=== PATIENT | female | born 1990 | race Caucasian/White ===

== ENCOUNTER 2017-03-11 05:15 | Day surgery (SDC) | payer MEDICAID ==
[2017-03-08 14:25] LABS: BASOPHILS 0.2 % (0-2); EOSINOPHILS 0.6 % (0-7); HEMATOCRIT 44.1 % (36.0-48.0); HEMOGLOBIN 15.3 g/dL (12-16); IMMATURE GRANULOCYTES 0.2 % (0-5); LYMPHOCYTES 19.9 % (15-50); MCH 31.2 pg (26.0-34.0); MCHC 34.7 g/dL (31.0-37.0); MEAN PLATELET VOLUME 9.5 fL (7.4-10.4); MONOCYTES 6.1 % (2-11); RDW 12.1 % (11.5-14.5); WBC 12.7 10x3/uL (4.8-10.8)
[2017-03-08 14:29] LABS: PLATELET COUNT 258 10x3/uL (130-400)
[~2017-03-11] VITALS: Ht 177.8 cm; Wt 93.9 kg
--- NOTE | ~2017-03-11 | OP ---
PATIENT NAME: ROMMEL MANN MEDICAL RECORD: [id number] :89 LOCATION:D.OPS ADMISSION DATE: SURGEON: EMILY BRADY MD DATE OF OPERATION: 03/11/2017 PREOPERATIVE DIAGNOSES: 1. Pelvic pain. 2. Active endometriosis. POSTOPERATIVE DIAGNOSES: 1. Pelvic pain. 2. Active endometriosis. PROCEDURES: 1. Diagnostic laparoscopy. 2. Fulguration of endometriosis. SURGEON: Emily Brady MD BROKERAGE CLERK: Mr. Guerrero. ANESTHESIOLOGIST: Dr. Kang. ANESTHESIA: General with endotracheal intubation. FINDINGS: Uterus, tubes, and ovaries are unremarkable. There is active endometriosis and classic powder burn lesion in the anterior pouch in the midline. There are 2 lesions measuring less than 0.5 cm across. Along the cul-de-sac and above the right and left uterosacral ligaments, there were multiple small lesions. On the right side, multiple blisters were identified. On the left, several small powder burn lesions overlying the tract of the ureter. What was visualized of the abdominal anatomy is unremarkable. PATHOLOGY: None. SPECIMEN DISPOSITION: None applicable. ESTIMATED BLOOD LOSS: Minimal. FLUIDS: 500 mL of lactated Ringer's. URINE OUTPUT: Quantity sufficient void prior to the procedure. COMPLICATIONS: None. DRAIN: None. INDICATIONS: The patient is a 27-year-old female with longstanding pelvic pain. The patient has been tried on conservative management without results. She is consented for diagnostic laparoscopy and any indicated procedure. DESCRIPTION OF PROCEDURE: After informed consent was given, the patient was taken to the operating room where anesthetic was obtained and she is positioned. The patient is now prepped and draped. An incision made at the umbilicus. A 5-mm trocar was inserted. Pneumoperitoneum was developed. Accessory ports OPERATIVE REPORT [id number] ROMMEL MANN placed. Bowel swept free of the pelvis and the pelvis visualized with the above findings. Bovie cautery was now selected at 20 vivar of energy and active endometrial lesions anterior to the uterus were ablated. After completion of fulguration of the endometriosis, the accessory trocars were removed with the pneumoperitoneum being released during this time. The lower skin incision was closed and then the primary trocar removed and the skin closed. All sites were covered with Dermabond. Sponge, lap, and needle counts correct times 2. TRANSINT:[id number] Voice Confirmation ID: [id number] DOCUMENT ID: [id number] EMILY BRADY MD at 0809 CC: [id number] DICTATION DATE: 03/11/17 0759 MAILER: 03/11/17 1058 [facility] 03/11/17 [place] [id number] [place] [id number]
[~2017-03-11 05:15] MED LIST: ALDACTONE50 MG PO; HYDROCODON-ACE1 EAC7 PO; LOW-OGESTREL1 TAB PO; OMEPRAZOLE20 M1 PO
[2017-03-11 06:48] LABS: HCG URINE NEGATIVE (NEGATIVE)
[2017-03-11 06:49] VITALS: BP 116/77; Ht 177.8 cm; Wt 93.9 kg
== END 2017-03-11 11:10 | disposition home or self-care (01) ==
LOC: D.OPS 05:15
PROVIDERS: Obstetrics & Gynecology
DX: N80.3 Endometriosis of pelvic peritoneum (principal); Z01.812 Encounter for preprocedural laboratory examination

== ENCOUNTER 2018-06-09 05:20 | Day surgery (SDC) | payer MEDICAID ==
[2018-06-06 11:01] LABS: BASOPHILS 0.4 % (0-2); EOSINOPHILS 1.1 % (0-7); HEMATOCRIT 41.3 % (36.0-48.0); HEMOGLOBIN 14.6 g/dL (12-16); IMMATURE GRANULOCYTES 0.1 % (0-5); LYMPHOCYTES 36.8 % (15-50); MCHC 35.4 g/dL (31.0-37.0); MCV 87.7 fL (80.0-100.0); MEAN PLATELET VOLUME 9.6 fL (7.4-10.4); MONOCYTES 4.8 % (2-11); NEUTROPHILS 56.8 % (40-80); PLATELET COUNT 260 10x3/uL (130-400); RBC 4.71 10x6/uL (4.00-5.40); WBC 7.4 10x3/uL (4.8-10.8)
[2018-06-06 11:09] LABS: CALC OSMOLALITY 275 mosm/kg (275-300); CALCIUM 8.8 mg/dL (8.5-10.1); CARBON DIOXIDE 26.9 mmol/L (21.0-32.0); CHLORIDE - SERUM 103 mmol/L (98-107); CREATININE - SERUM 0.9 mg/dL (0.6-1.3); GLUCOSE 115 mg/dL (74-106); POTASSIUM - SERUM 3.8 mmol/L (3.5-5.1); SODIUM 138 mmol/L (136-145); UREA NITROGEN 11 mg/dL (7-18); eGFR NON AFRICAN AMERICAN 78 mL/min (90-120)
[~2018-06-09] VITALS: Ht 177.8 cm; Wt 90.9 kg
[2018-06-09] VITALS (9 sets, daily range): BP systolic 96–133; BP diastolic 55–81; Ht 177.8 cm; Wt 90.9 kg
[~2018-06-09 05:20] MED LIST changes: +PROTONIX40 MG PO
[2018-06-09 06:35] LABS: HCG URINE NEGATIVE (NEGATIVE)
--- NOTE | 2018-06-09 10:32 | NUR ---
RECEIVED PT FROM VIA STRETCHER TO ROOM 1278. PT TRANSFERS ONTO BED PER SELF. VSS. HRRR WITHOUT AUDIBLE MURMUR. BBS CLEAR. BS HYPOACTIVE. ABDOMEN SOFT/NON-DISTENDED. 3 LAP INCISIONS WITH GLUE. NO REDNESS, SWELLING OR DRAINAGE NOTED. ICE PACK TO ABDOMEN. NEG HOMANS' SIGN. PPP. NO EDEMA NOTED TO BLE. SCDS ON BLE. PUMP ON. PIV OF LR INFUSING AT 125 ML/HR. SITE CLEAR TO LEFT WRIST. PT INSTRUCTED TO NOTIFY NURSE OF NEED TO VOID. VERBALIZES UNDERSTANDING. SR UP X 2. CALL LIGHT IN REACH.
--- NOTE | 2018-06-09 10:47 | NUR ---
PT GIVEN TYLENOL 1000 MG, NEURONTIN 300 MG PO, TORADOL 30 MG IVP. PT INSTRUCTED ON ALL MEDS. VERBALIZES UNDERSTANDING. DENIES NAUSEA AT THIS TIME.
--- NOTE | 2018-06-09 11:10 | NUR ---
STATES PAIN IS A 5 ON SCALE OF 0-10. "NOT TOO BAD"
--- NOTE | 2018-06-09 12:15 | NUR ---
DR BRADY VISITS WITH PT. NEW ORDER RECEIVED. PT OOB AND AMB TO BR. VOIDS MOD AMT OF CLEAR, YELLOW URINE. PT AMB BACK TO BED. RODRI ACTIVITY WELL. PT IN AGREEMENT WITH DISCHARGE.
--- NOTE | 2018-06-09 12:22 | NUR ---
PT C/O INCISIONAL PAIN OF "5" ON 0-10 PAIN SCALE. OXYCODONE IR 10 MG GIVEN PO ORDERED. PT INSTRUCTED ON MED. VERBALIZES UNDERSTANDING.
[2018-06-09] MEDS ORDERED: OXYCODONE HCL10 MG PO (12:45)
--- NOTE | 2018-06-09 13:10 | NUR ---
DISCHARGE INSTRUCTIONS GIVEN TO PT. PT VERBALIZES UNDERSTANDING OF ALL INSTRUCTIONS. COPIES GIVEN TO PT. PT GIVEN RX FOR OXYCODONE IR. PIV DC'D WITH CATHELON INTACT. PRESSURE BANDAGE TO SITE. PT UP TO DRESS.
--- NOTE | 2018-06-09 13:20 | NUR ---
PT READY FOR DISCHARGE. DISCHARGED IN STABLE CONDITION VIA WHEELCHAIR PER AUXILIARY STAFF TO PRIVATE VEHICLE.
--- NOTE | 2018-06-11 09:21 | OP ---
PATIENT NAME: ROMMEL MANN MEDICAL RECORD: [id number] :89 LOCATION:[facility] D.1278 ADMISSION DATE:06/09/18 SURGEON: VÍCTOR BRADY MD DATE OF OPERATION: 06/09/2018 PREOPERATIVE DIAGNOSES: 1. Dysmenorrhea. 2. Dysfunctional uterine bleeding. POSTOPERATIVE DIAGNOSES: 1. Dysmenorrhea. 2. Dysfunctional uterine bleeding. 3. Endometriosis. PROCEDURES: 1. Diagnostic laparoscopy. 2. Bilateral salpingectomy. 3. Total laparoscopic hysterectomy. SURGEON: Víctor Brady MD [employer] SUPERVISOR: Dr. Ho. ANESTHESIOLOGIST: Dr. Rodriguez VICE PRESIDENT SALES: [employer] Avendano ANESTHETIC: General anesthetic with endotracheal intubation. FINDINGS: Uterus is boggy and slightly enlarged. Bilateral tubes were unremarkable. Two endometrial implants were visualized to the left of midline and the anterior pouch. In the cul-de-sac, it was inspected and clear blisters were noted in 2 locations, left of the midline at the uterosacral ligaments. Otherwise, the pelvis was unremarkable. What was visualized of the abdominal anatomy was also unremarkable. SPECIMENS REMOVED: 1. Bilateral tubes. 2. Uterus with cervix. SPECIMEN DISPOSITION: Pathology. ESTIMATED BLOOD LOSS: Less than or equal to 100 cc. FLUIDS: 1200 cc of lactated Ringer's. URINE OUTPUT: 800 cc of clear urine. COMPLICATIONS: None. DRAIN: Gonzalez to gravity, discontinued on the floor. INDICATIONS: The patient is a 28-year-old female with no future fertility, desires with intense pelvic pain. The patient has dyspareunia that has a negative impact on her quality of life. The patient states symptoms are worse OPERATIVE REPORT [id number] ROMMEL AMNN during her menstrual cycle. During her cycle, she also has heavy flow with sensation that something is "falling out of the vagina." The patient is consented for total laparoscopic hysterectomy, bilateral salpingectomy, and any indicated procedure. DESCRIPTION OF PROCEDURE: After informed consent, the patient was taken to the operating room, anesthetic was obtained. The patient was now prepped and draped in the usual sterile fashion. The patient has a uterine manipulator placed and attention was directed to the abdomen where an incision was made and the trocar inserted. Pneumoperitoneum was now developed. Accessory ports were now placed in the left and right lower quadrant. With the left tube elevated, a Thunderbeat coagulation cutter was inserted and the tube was removed from its attachments to the mesosalpinx. The dissection was carried over the uteroovarian and round ligaments. Anterior leaf of the broad ligament was opened and the bladder flap developed to the midline. Dissection continues down lateral to the uterus and the vessels of the left side were skeletonized, compressed, and coagulated. Attention was now directed to the right side. The right tube was elevated in similar fashion. Again, using the Thunderbeat, the tube was removed from its attachment to the adnexa. The dissection was carried down over the round ligament and the uteroovarian ligaments. Anterior leaf of the broad ligament was opened and the bladder flap now developed to the midline. Posterior leaf was opened and the vessel skeletonized on the right side. The vessels were now compressed, coagulated, and . The dissection continues medial to this and the vaginal vault was entered posteriorly at the 6 o'clock position. Dissection was carried from the 8 o'clock to the 3 o'clock position. The coagulation cutter was now placed in the left port and the dissection of the uterus from its attachments to the vagina continued from an 8-12 o'clock position. The remaining portion of the uterus attachment to the vagina was completely removed from the right. Uterus was pulled into the vaginal vault. Pneumoperitoneum was established. The surgical field was inspected and adequate hemostasis was present. The uterus was now removed and pneumoperitoneum released. Gas was turned off and light was on standby. Legs were positioned for the close. A speculum was introduced. The cuff was grabbed laterally with Allises and anterior and posteriorly with Allis-Mobile clamps. The cup was now closed in a horizontal fashion. Initial stitches were placed laterally going through just lateral to the edge of the incision incorporating the uterosacral ligaments and into the vaginal cuff. After these were secured, 3 remaining interrupted [id number] stitches were applied across the cup to obtain reapproximation and good hemostasis. The pneumoperitoneum was reestablished and visualization of the pelvis reveals adequate hemostasis. The pelvis was irrigated and irrigant removed. After removal of the irrigant, Pneumoperitoneum was released and accessory trocars were removed. The primary trocars were removed after release of the entire pneumoperitoneum and all sites closed with a subcuticular stitch and Dermabond applied. Sponge, lap, and needle counts correct times 3. TRANSINT:[id number] Voice Confirmation ID: [id number] DOCUMENT ID: [id number] OPERATIVE REPORT [id number] ROMMEL MANN,VÍCTOR Fields MD at 0921 CC: [id number] DICTATION DATE: 06/09/1857 SENIOR HR BUSINESS PARTNER: 06/09/18 1204 [facility] IN 06/09/18 [facility] [address] [place] [address]
== END 2018-06-09 13:20 | disposition home or self-care (01) ==
LOC: D.SDCHOLD 05:20 → D.OPS 05:20 → D.SDCHOLD 07:30 → EDSTATUS 09:45 → D.SDCHOLD 09:45 → D.LD 10:33 → D.OPS 13:20
PROVIDERS: ATTEND Obstetrics & Gynecology
DX: N94.6 Dysmenorrhea, unspecified (principal); N80.9 Endometriosis, unspecified